=== PATIENT | male | born 1930 | race Caucasian/White ===

== ENCOUNTER → 2016-05-16 | Outpatient (CLI) | payer OTHER, MEDICARE ==
[~2016-05-16] VITALS: Ht 182.9 cm; Wt 110.7 kg
[~2016-05-16] MED LIST: ALLOPURINOL 30300 M2 PO; ASPIR 8181 MG PO; BIOFREEZE118 ML TP; CELEBREX 200 M200 M1 PO; CENTRUM SILVER1 EAC4 PO; CRESTOR10 MG PO; LASIX 40 MG TAB40 M2 PO; LISINOPRIL20 MG PO; OXYCODONE HCL10 MG PO; OXYCODONE PO; TOPROL XL25 MG PO; TRAMADOL 50 MG50 MG PO
--- NOTE | ~2016-05-16 | HPC ---
[facility] [address] [address] PAIN MANAGEMENT CONSULTATION Name: PERCY WARREN Room #: REG [facility] Aguila.#: [id number] Admission: 05/16/16 Attend Phys: Neo Murcia DO Discharge: Date of : 34 Report #: [id number] THIS REPORT FOR: //name// CC: Warren Murcia The patient is a very pleasant 86-year-old gentleman who is seen in consultation on 05/03/2016, for symptomatic lumbar radiculopathy secondary to spinal stenosis with a component of right hip joint DJD and pain. The patient was given a right hip joint injection at that time and I ordered an MRI of the lumbar spine. He returns to pain clinic today noting only transient relief from the SI joint injection, rates his pain today 8 on a 0-10 visual analog scale. I reviewed the MRI, which was obtained 05/10/2016. He has a large right HNP at L2-L3, central stenosis down about 7 mm, multilevel lumbar spondylosis, trefoil severe spinal stenosis at L3-L4 as well. PHYSICAL EXAMINATION: Shows pleasant 86-year-old gentleman, moderately obese with a BMI of 33.1 kg/m2. Vital signs generally stable as noted in the EMR. Rises from chair using armrests. Antalgic gait favoring the right leg. Right hip flexion strength diminished. Pain with weightbearing on the right. ASSESSMENT: 1. Symptomatic lumbar radiculopathy secondary to spinal stenosis in a patient with component of right hip degenerative joint disease, hypertension treated with lisinopril and metoprolol, currently taking Celebrex and oxycodone prescribed by Dr. Tubbs. 2. Symptomatic lumbar radiculopathy to spinal stenosis. RECOMMENDATION: After discussion with the patient today, we have elected to move forward with right L2-L3 transforaminal epidural injection. Follow up in 2-3 weeks for reevaluation. If this does not afford adequate relief, he may consider evaluation with neurosurgery. PROCEDURE: Right L2-L3 transforaminal epidural injection under fluoroscopy. PROCEDURE NOTE: After both written and informed consent was obtained including risk of spinal cord damage, infection, increased pain and paralysis, the patient agreed to proceed. The patient was taken to the fluoroscopy suite, placed in a prone position with appropriate abdominal bolstering. After sterile prep with ChloraPrep and sterile drape, a skin wheal with 1% Xylocaine was raised. A 22 gauge 4-1/2 inch epidural Tuohy needle was inserted. From an oblique approach into the posterior-superior aspect of the right L2-L3 neural foramen with continuous pressure on the glass syringe plunger for loss of resistance. Glass syringe was filled with 2 cc of 0.1 Xylocaine. The glass loss of resistance syringe was removed. A low volume extension tubing was connected, negative aspiration was accomplished for cerebrospinal fluid or blood. 1 mL of Omnipaque was injected which showed spread both within the epidural space and laterally [address] [address] PAIN MANAGEMENT CONSULTATION Name: KELVINPERCY HAMILTON Room #: REG TETO Mcelroy#: [id number] Admission: 05/16/16 Attend Phys: Neo Murcia DO Discharge: Date of : 34 Report #: [id number] along the nerve root. This was followed with 80 mg of triamcinolone plus 1 mL of 1.5% preservative-free Xylocaine. Needle was partially withdrawn, 0.5 mL of Xylocaine was injected to clear the needle and the needle was removed. The area was cleansed, band-aid was applied. The patient was allowed to ambulate to the recovery room, discharged in good and stable condition. Thank you for allowing me to participate in the patient's care. I am pleased to note that following the procedure, his pain was absent on discharge, having been an 8/10 on admission. We will plan on seeing the patient about 3-4 weeks for reevaluation, consideration for repeat injection if indicated clinically. <ELECTRONICALLY SIGNED> By: Neo Murcia DO 05/17/16 [id number] Neo Murcia DO /nt
[2016-05-16 10:21] VITALS: BP 161/62
== END | disposition home or self-care (01) ==
LOC: PAIN 06:43
DX: M48.06 Spinal stenosis, lumbar region (principal); M16.11 Unilateral primary osteoarthritis, right hip; I10 Essential (primary) hypertension; E66.01 Morbid (severe) obesity due to excess calories; Z68.33 Body mass index [BMI] 33.0-33.9, adult